=== PATIENT | male | born 1990 | race Caucasian/White ===

== ENCOUNTER 2023-04-04 09:18 | Emergency (ER) | payer OTHER ==
[2023-04-04] MEDS ORDERED: Diphtheria,Pertussis(Acell),Tetanus Vaccine 0.5 ML Syringe IM ONE (10:12)
[2023-04-04] MEDS ORDERED: Lidocaine 1% 5 ML VIAL INJECT STA (10:12)
[2023-04-04] MEDS ORDERED: Bacitracin Oint 1 GM U/D Packet TOP STA (11:32)
== END 2023-04-04 11:53 | disposition home or self-care (01) ==
LOC: MW.ED 09:18
DX: S61.512A Laceration without foreign body of left wrist, initial encounter (principal); S40.212A Abrasion of left shoulder, initial encounter; I10 Essential (primary) hypertension; Z23 Encounter for immunization; W18.30XA Fall on same level, unspecified, initial encounter; Y92.89 Other specified places as the place of occurrence of the external cause; Y99.0 Civilian activity done for income or pay
CPT/HCPCS: 12001; 73100-26-LT; 73100-LT; 90471; 90715; 99283; 99283-25; J3490

== ENCOUNTER 2023-06-26 18:28 | Emergency (ER) | payer SELFPAY ==
[2023-06-26] MEDS ORDERED: Ondansetron 4 MG/2 ML SDV IVPUSH ONE (19:54)
[2023-06-26] MEDS ORDERED: Sodium Chloride 0.9% 1,000 ML IV ONE (19:54)
[2023-06-26 20:11] LABS: BASOPHILS PERCENT AUTO 0.4 % (0.0-1.5); EOSINOPHILS ABSOLUTE AUTO 0.1 K/uL (0.0-0.7); EOSINOPHILS PERCENT AUTO 0.6 % (0.0-7.0); HEMATOCRIT 46.9 % (38.0-50.0); HEMOGLOBIN 16.1 g/dL (13.0-17.0); LYMPHOCYTES ABSOLUTE AUTO 1.4 K/uL (0.6-2.4); LYMPHOCYTES PERCENT AUTO 17.3 % (16.0-40.0); MEAN CORPUSCULAR HEMOGLOBIN 30.3 pg (27.0-32.0); MEAN CORPUSCULAR HGB CONC 34.3 g/dL (31.0-37.0); MEAN CORPUSCULAR VOLUME 88.2 fL (80.0-98.0); MONOCYTES ABSOLUTE AUTO 0.6 K/uL (0.0-0.8); MONOCYTES PERCENT AUTO 7.8 % (0.0-15.0); NEUTROPHILS ABSOLUTE AUTO 5.9 K/uL (1.4-5.7); NEUTROPHILS PERCENT AUTO 73.9 % (48.0-80.0); NRBC ABSOLUTE 0 K/uL; PLATELET COUNT,PLT 358 K/uL (150-400); RED BLOOD CELL COUNT 5.32 M/uL (4.50-5.90); WHITE BLOOD CELL COUNT,WBC 7.93 K/uL (4.0-11.0)
[2023-06-26 20:20] LABS: COLOR,URINE YELLOW; GLUCOSE,URINE NEGATIVE (NEGATIVE); KETONES,URINE TRACE mg/dL (NEGATIVE); LEUKOCYTE ESTERASE,URINE NEGATIVE (NEGATIVE); NITRITE,URINE NEGATIVE (NEGATIVE); OCCULT BLOOD,URINE NEGATIVE (NEGATIVE); PH,URINE 5.5 (5.0-8.0); PROTEIN,URINE 30 mg/dL (NEGATIVE); UROBILINOGEN,URINE 0.2 EU/dL (<2.0)
[2023-06-26 20:21] LABS: APPEARANCE,URINE HAZY; BILIRUBIN,URINE SMALL (NEGATIVE)
[2023-06-26 20:29] LABS: BACTERIA,URINE OCCASIONAL (NEGATIVE); EPITHELIAL CELLS,URINE FEW (NONE-FEW); RBC,URINE 0-1 (0-2/HPF)
[2023-06-26 20:34] LABS: A/G RATIO 1.3 (0.9-1.6); ALBUMIN 4.8 g/dL (3.4-5.0); BILIRUBIN TOTAL 0.7 mg/dL (0.2-1.0); CARBON DIOXIDE,CO2 24.7 mmol/L (21.0-32.0); CREATININE 5.5 mg/dL (0.8-1.3); EST CRCL DRUG DOSING (CG) 18.19 mL/min; POTASSIUM,K 4.6 mmol/L (3.5-5.1); PROTEIN TOTAL,TP 8.6 g/dL (6.4-8.2)
== END 2023-06-27 ==
LOC: MW.ED 18:28
DX: N17.9 Acute kidney failure, unspecified (principal); I10 Essential (primary) hypertension; Z79.899 Other long term (current) drug therapy
CPT/HCPCS: 36415; 80053; 81001; 82550; 83690; 85025; 93005; 96361; 96374; 99285; J2405; J7030; 93010